=== PATIENT | male | born 1985 | race American Indian/Alaskan Native ===

== ENCOUNTER 2017-05-13 20:44 | Emergency (ER) | payer SELFPAY ==
[2017-05-14] MEDS ORDERED: TYLENOL PO ONE (00:21)
[2017-05-14 00:43] VITALS: BP 136/86
--- NOTE | 2017-05-14 01:09 | Emergency Department Report ---
ED Back Pain/Injury HPI - General Chief Complaint: Back Pain/Injury Stated Complaint: BACK AND RT LEG PAIN Time Seen by Provider: 05/14/17 01:04 Source: patient Limitations: No Limitations - History of Present Illness Initial Comments: This is a 31-year-old male that presents with chronic lower back pain but has gotten worse the past 3 weeks. Patient stated has a hx of L4-L5 herniated disc that has been operated on. Patient stated he was at work pulling 100 pound cart 3 weeks ago and felt a pinch on his lower back and now radiates towards his right leg for 2 weeks. Patient denies loss of consciousness, head trauma, ecchymosis, chest pain, short of breath, headache, blurry vision, decreased range of motion, bladder or bowel instability, diaphoresis, nausea, vomiting, abdominal pain, joint pain or swelling, visual changes, chest wall tenderness, numbness or tingling sensation extremity. Patient agrees to good rectal tone with no bladder overflow. Patient is currently ambultory with no assistance. Patient stated on Thursday he was at an urgent care [facility] and an xray of lumbar spine has been obtained with normal results of no fractures. Pt also stated [facility] urgent care scheduled patient for an MRI in [place] that is coming up this week. Patient denies any allergies. Denies significant past medical history. MD Complaint: back pain -: Gradual, week(s) (3) Similar Symptoms Previously: Yes Place: work Radiation: left leg Severity: mild Severity scale (0 -10): 6 Quality: aching Consistency: constant Improves With: medication (pain medications (as per patient)) Worsens With: none Context: other (pulling) Associated Symptoms: denies other symptoms. denies: confusion, weakness, chest pain, numbness, difficulty walking, cough, difficulty urinating, diaphoresis, incontinence, fever/chills, constipation, headaches, abdominal pain, loss of appetite, malaise, nausea/vomiting, rash, seizure, shortness of breath, syncope - Related Data Previous Rx's Medication Instructions Recorded Last Taken Type Ibuprofen [Motrin 600 MG tab] 600 mg PO Q8H PRN #15 tablet 05/14/17 Unknown Rx predniSONE [Deltasone] 20 mg PO BID #10 tab 05/14/17 Unknown Rx Allergies Allergy/AdvReac Type Severity Reaction Status Date / Time No Known Allergies Allergy Verified 05/13/17 20:51 ED Review of Systems ROS: Stated complaint: BACK AND RT LEG PAIN Other details as noted in HPI Constitutional: denies: chills, fever Eyes: denies: eye pain, eye discharge, vision change ENT: denies: ear pain, throat pain Respiratory: denies: cough, shortness of breath, wheezing Cardiovascular: denies: chest pain, palpitations Endocrine: no symptoms reported Gastrointestinal: denies: abdominal pain, nausea, diarrhea Genitourinary: denies: urgency, dysuria Musculoskeletal: denies: back pain, joint swelling, arthralgia Skin: denies: rash, lesions Neurological: denies: headache, weakness, paresthesias Psychiatric: denies: anxiety, depression Hematological/Lymphatic: denies: easy bleeding, easy bruising ED Past Medical Hx - Past Medical History Previous Medical History?: No - Surgical History Past Surgical History?: Yes Additional Surgical History: BACK SURGERY 2009 / RIGHT SHOULDER - Social History Smoking Status: Never Smoker Substance Use Type: Alcohol - Medications Home Medications: Home Medications Medication Instructions Recorded Confirmed Last Taken Type Ibuprofen [Motrin 600 MG tab] 600 mg PO Q8H PRN #15 tablet 05/14/17 Unknown Rx predniSONE [Deltasone] 20 mg PO BID #10 tab 05/14/17 Unknown Rx ED Physical Exam - General Limitations: No Limitations General appearance: alert, in no apparent distress - Head Head exam: Present: atraumatic, normocephalic, normal inspection - Eye Eye exam: Present: normal appearance, PERRL, EOMI. Absent: scleral icterus, conjunctival injection, nystagmus, periorbital swelling, periorbital tenderness Pupils: Present: normal accommodation - ENT ENT exam: Present: normal exam, normal orophraynx, mucous membranes moist, TM's normal bilaterally, normal external ear exam - Neck Neck exam: Present: normal inspection, full ROM. Absent: tenderness, meningismus, lymphadenopathy, thyromegaly - Respiratory Respiratory exam: Present: normal lung sounds bilaterally. Absent: respiratory distress, wheezes, rales, rhonchi, stridor - Cardiovascular Cardiovascular Exam: Present: regular rate, normal rhythm, normal heart sounds. Absent: bradycardia, tachycardia, irregular rhythm, systolic murmur, diastolic murmur, rubs, gallop - GI/Abdominal GI/Abdominal exam: Present: soft, normal bowel sounds. Absent: distended, tenderness, guarding, rebound, rigid, diminished bowel sounds - Rectal Rectal exam: Present: deferred - Extremities Exam Extremities exam: Present: normal inspection, full ROM, normal capillary refill. Absent: tenderness, pedal edema, joint swelling, calf tenderness - Back Exam Back exam: Present: normal inspection, full ROM. Absent: tenderness, CVA tenderness (R), CVA tenderness (L), muscle spasm, paraspinal tenderness, vertebral tenderness, rash noted - Expanded Back Exam Expanded Back exam: Absent: saddle anesthesia Back exam: Negative Straight Leg Raising: Left, Right - Neurological Exam Neurological exam: Present: alert, oriented X3, CN II-XII intact, normal gait - Psychiatric Psychiatric exam: Present: normal affect, normal mood - Skin Skin exam: Present: warm, dry, intact, normal color. Absent: rash ED Course Vital Signs 05/13/17 05/14/17 05/14/17 20:51 00:25 00:35 Temperature 97.3 F L 98.3 F Pulse Rate 73 61 Respiratory 20 18 18 Rate Blood Pressure 130/89 Blood Pressure 136/86 [Right] O2 Sat by Pulse 100 99 Oximetry 05/14/17 00:51 Temperature 98.3 F Pulse Rate 61 Respiratory 18 Rate Blood Pressure Blood Pressure 136/86 [Right] O2 Sat by Pulse 99 Oximetry - Reevaluation(s) Reevaluation #1: 05/14/17 01:10 Patient is sitting comfortably with friend with no signs of distress noted. ED Medical Decision Making - Medical Decision Making Ed course: This is a 31-year-old male that presents with chronic lower back pain 1- after my physical exam, due to pt having recent normal x-ray findings in an urgent care and a f/u with MRI this week, imaging has not been obtained. 2- Pt received solumedorl 40Im in ED and was d/c with prednisone 40mg PO for 5 days 3- patient was instructed to follow-up with your primary care doctor in 3-5 days or if symptoms worsen such as bladder or bowel stability, chest pain, short of breath, numbness or tingling sensation in extremities, headache, dizziness, visual changes, nausea vomiting, or abdominal pain, upper back to emergency room as was possible. 4- at time time of discharge, the patient does not seem toxic or ill in appearance. No acute signs of distress noted. Patient agrees to discharge treatment plan of care. No further questions noted by the patient. Critical care attestation.: If time is entered above; I have spent that time in minutes in the direct care of this critically ill patient, excluding procedure time. ED Disposition Clinical Impression: Lumbar radiculopathy Low back pain Qualifiers: Chronicity: chronic Back pain laterality: unspecified Sciatica presence: unspecified whether sciatica present Qualified Code(s): M54.5 - Low back pain; G89.29 - Other chronic pain Disposition: TO HOME OR SELFCARE Is pt being admited?: No Does the pt Need Aspirin: No Condition: Stable Instructions: Chronic Back Pain (ED), Lumbar Radiculopathy (ED), Ibuprofen (By mouth) Additional Instructions: follow-up with your primary care doctor in 3-5 days or if symptoms worsen such as bladder or bowel stability, chest pain, short of breath, numbness or tingling sensation in extremities, headache, dizziness, visual changes, nausea vomiting, or abdominal pain, upper back to emergency room as was possible. Prescriptions: Ibuprofen [Motrin 600 MG tab] 600 mg PO Q8H PRN #15 tablet PRN Reason: Pain predniSONE [Deltasone] 20 mg PO BID #10 tab Referrals: PRIMARY CAREMD [Primary Care Provider] - 3-5 Days [facility] [Outside] - 3-5 Days [facility] [Outside] - 3-5 Days BRENDAN ENGLISH JR, MD [Staff Physician] - 3-5 Days Forms: Work/School Release Form(ED)
== END 2017-05-14 01:45 | disposition home or self-care (01) ==
LOC: ED 20:44
DX: M54.16 Radiculopathy, lumbar region (principal); G89.29 Other chronic pain
CPT/HCPCS: 96372; 99282; J2920